=== PATIENT | female | born 1985 | race Caucasian/White ===

== ENCOUNTER → 2018-06-05 | Outpatient (CLI) | payer OTHER ==
[2018-06-05 16:50] LABS: BASO % 0.5 % (0.0-1.0); EOS # 0.1 10^3/uL (0.0-0.50); EOS % 2.3 % (0.0-3.0); HEMATOCRIT 42.8 % (36.0-47.0); HEMOGLOBIN 14.4 g/dl (12.0-15.5); IMMATURE GRANULOCYTE % 0.3 % (0-3.0); LYMPH # 1.7 10^3/uL (1.5-4.5); LYMPH % 29.2 % (24.0-44.0); MEAN CORPUSCULAR HEMOGLOBIN 30.3 pg (27.0-33.0); MEAN CORPUSCULAR HGB CONC 33.6 g/dl (32.0-36.5); MEAN CORPUSCULAR VOLUME 90.1 fl (80.0-96.0); MONO # 0.3 10^3/uL (0.0-0.8); MONO % 5.2 % (0.0-5.0); NEUTROPHILS # 3.6 10^3/uL (1.8-7.7); NEUTROPHILS % 62.5 % (36.0-66.0); PLATELET COUNT, AUTOMATED 218 10^3/uL (150-450); RED BLOOD COUNT 4.75 10^6/uL (4.00-5.40); WHITE BLOOD COUNT 5.8 10^3/uL (4.0-10.0)
[2018-06-05 17:00] LABS: TOTAL 25(OH) VITAMIN D 40.2 NG/ML (30.0-100.0)
[2018-06-05 17:02] LABS: ALBUMIN 4.1 GM/DL (3.2-5.2); ALBUMIN/GLOBULIN RATIO 1.24 (1.00-1.93); ALKALINE PHOSPHATASE 58 U/L (45-117); ALT/SGPT 29 U/L (12-78); ANION GAP 8 MEQ/L (8-16); AST/SGOT 16 U/L (7-37); BILIRUBIN,TOTAL 0.3 MG/DL (0.2-1.0); BLOOD UREA NITROGEN 12 MG/DL (7-18); CALCIUM LEVEL 8.8 MG/DL (8.5-10.1); CARBON DIOXIDE LEVEL 28 MEQ/L (21-32); CHLORIDE LEVEL 106 MEQ/L (98-107); CHOLESTEROL LEVEL 125 MG/DL (<200); CHOLESTEROL RISK RATIO 3.289 (<5); CREATININE FOR GFR 0.81 MG/DL (0.55-1.30); FERRITIN 22 NG/ML (8-252); FREE T4 0.86 NG/DL (0.76-1.46); GLOMERULAR FILTRATION RATE > 60.0 (>60); GLUCOSE, FASTING 73 MG/DL (70-100); HDL CHOLESTEROL 38 MG/DL (>40); IRON (FE) 39 UG/DL (50-170); LDL CHOLESTEROL 54.4 MG/DL (<100); NON-HDL-C 87 MG/DL; PERCENT SATURATION 14.6 % (13.2-45.0); POTASSIUM SERUM 4.1 MEQ/L (3.5-5.1); SODIUM LEVEL 142 MEQ/L (136-145); TOTAL IRON BINDING CAPACITY 268 UG/DL (250-450); TOTAL PROTEIN 7.4 GM/DL (6.4-8.2); TRIGLYCERIDES LEVEL 163 MG/DL (<150)
[2018-06-05 18:50] LABS: ESTIMATED AVERAGE GLUCOSE 85 MG/DL (60-110); HEMOGLOBIN A1c 4.6 %
== END ==
LOC: M LRY 13:26
DX: E55.9 Vitamin D deficiency, unspecified (principal); Z79.899 Other long term (current) drug therapy; Z13.220 Encounter for screening for lipoid disorders; Z13.29 Encounter for screening for other suspected endocrine disorder; Z13.1 Encounter for screening for diabetes mellitus

== ENCOUNTER → 2018-12-20 | Outpatient (CLI) | payer OTHER ==
[2018-12-20 13:35] LABS: BASO % 0.5 % (0.0-1.0); EOS # 0.1 10^3/uL (0.0-0.50); EOS % 1.3 % (0.0-3.0); HEMATOCRIT 39.2 % (36.0-47.0); HEMOGLOBIN 13.7 g/dl (12.0-15.5); LYMPH # 1.7 10^3/uL (1.5-4.5); LYMPH % 21.4 % (24.0-44.0); MEAN CORPUSCULAR HEMOGLOBIN 31.6 pg (27.0-33.0); MEAN CORPUSCULAR HGB CONC 34.9 g/dl (32.0-36.5); MEAN CORPUSCULAR VOLUME 90.3 fl (80.0-96.0); MONO # 0.4 10^3/uL (0.0-0.8); MONO % 5.4 % (0.0-5.0); NEUTROPHILS # 5.7 10^3/uL (1.8-7.7); NEUTROPHILS % 71.1 % (36.0-66.0); PLATELET COUNT, AUTOMATED 227 10^3/uL (150-450); RED BLOOD COUNT 4.34 10^6/uL (4.00-5.40); WHITE BLOOD COUNT 7.9 10^3/uL (4.0-10.0)
[2018-12-20 14:23] LABS: ALBUMIN 3.7 GM/DL (3.2-5.2); ALT/SGPT 28 U/L (12-78); BILIRUBIN,DIRECT 0.2 MG/DL (0.0-0.2); BILIRUBIN,TOTAL 0.7 MG/DL (0.2-1.0); TOTAL PROTEIN 7.2 GM/DL (6.4-8.2)
[2018-12-20 14:44] LABS: RUBELLA IgG QUALITATIVE IMMUNE (IMMUNE)
[2018-12-20 15:12] LABS: HEPATITIS C VIRUS ABY INDEX 0.1 INDEX (<0.8); HIV 1&2 SCREEN CENTAUR NEGATIVE (NEGATIVE)
[2018-12-20 15:28] LABS: CHLAMYDIA DNA AMPLIFICATION NEGATIVE (NEGATIVE); GC DNA AMPLIFICATION NEGATIVE (NEGATIVE)
== END ==
LOC: M SMT 09:47
PROVIDERS: ATTEND Specialist
DX: Z3A.08 8 weeks gestation of pregnancy (principal); Z34.81 Encounter for supervision of other normal pregnancy, first trimester

== ENCOUNTER → 2019-02-27 | Outpatient (CLI) | payer OTHER ==
--- NOTE | 2019-02-28 09:58 | REP ---
Obstetric ultrasound for anatomy: There is a single intrauterine gestation. position is variable. The heart rate is 154 beats per minute. There is motion. The placenta is anterior. There is no previa or abruptio. Placenta is grade 1 maturity. The amniotic fluid volume subjectively is normal. The cervix measures 5.3 cm length. Gestational age by today's ultrasound is 20 weeks 0 days/ IGOR is 07/17/2019. Gestational age by LMP is 20 weeks 0 days/IGOR 07/17/2019. weight is 316 grams/0 pounds, 11 ounces. This is the 42nd percentile for 20 weeks 0 days. The following anatomic structures are identified and are unremarkable: Intracranial lateral ventricles, choroid plexus, cerebellum, cisterna magna, facial profile, diaphragm, left-sided stomach, cord insertion, three-vessel cord, bladder, spine and upper lower extremities. Suboptimally demonstrated because of position are the upper lip, lungs, four-chamber view of the heart, cardiac right and left ventricular outflow tracts and kidneys. A followup study dedicated to these structures might be considered. Otherwise, there are no anomalies. Electronically Signed by Kt Montaño MD 02/28/2019 09:50 A
== END ==
LOC: M RAD 17:06
PROVIDERS: ATTEND Specialist
DX: Z34.82 Encounter for supervision of other normal pregnancy, second trimester (principal)

== ENCOUNTER → 2019-03-12 | Outpatient (CLI) | payer OTHER ==
[2019-03-12 13:21] LABS: ALBUMIN 3.2 GM/DL (3.2-5.2); BILIRUBIN,DIRECT 0.2 MG/DL (0.0-0.2); BILIRUBIN,TOTAL 0.4 MG/DL (0.2-1.0); TOTAL PROTEIN 6.6 GM/DL (6.4-8.2)
== END ==
LOC: M SMT 10:14
PROVIDERS: ATTEND Advanced Practice Midwife
DX: R10.11 Right upper quadrant pain (principal)

== ENCOUNTER → 2019-03-21 | Outpatient (CLI) | payer OTHER ==
--- NOTE | 2019-03-21 19:48 | REP ---
Clinical: Anatomical evaluation. Comparison: 02/27/2019 . Findings: Examination demonstrates a single live intrauterine in transverse (head to maternal left) presentation. motion is identified by technologist. Placenta is noted anterior and grade grade zero without evidence for placenta previa or abruption. Amniotic fluid volume is normal. Cervix measures 4.1 cm in length and appears closed. No evidence for nuchal cord. Gestational age by LMP 23 weeks 1 day with IGOR 07/17/2019 . Gestational age by current measurements 23 weeks 0 days with IGOR 03/14/2019 . FHR equals 162 beats per minute. Estimated weight 594 grams ( 55th percentile). Anatomical assessment demonstrates normal structures including cranium, choroid plexus, cavum, cerebellum/posterior fossa, diaphragm, stomach, cord insertion/three-vessel cord, kidneys/bladder, spine, and extremities. Impression: 1. Single live intrauterine in transverse lie demonstrating appropriate interval growth. 2. Limited evaluation of the facial features, lungs, and heart/ventricular outflow tracts again noted. Remainder of the anatomical assessment is complete and normal. Electronically Signed by Barrera Dominguez MD 03/21/2019 07:39 P
== END ==
LOC: M RAD 17:38
PROVIDERS: ATTEND Advanced Practice Midwife
DX: Z34.82 Encounter for supervision of other normal pregnancy, second trimester (principal); Z3A.23 23 weeks gestation of pregnancy

== ENCOUNTER → 2019-03-23 | Outpatient (CLI) | payer OTHER ==
--- NOTE | 2019-03-23 10:19 | REP ---
RIGHT UPPER QUADRANT ULTRASOUND: Real-time sonographic evaluation of the right upper quadrant performed. The patient had a prior cholecystectomy. There is no intrahepatic or extrahepatic biliary dilatation, common bile duct measuring 6 mm. The liver and pancreas demonstrate no mass. There may be some minimal fatty infiltration of the liver sonographically. The right kidney demonstrates no hydronephrosis or nephrolithiasis with normal size 11.3 cm in length. No free fluid is seen. The patient is and the heart rate is 146 beats per minute. IMPRESSION: Status post cholecystectomy without biliary dilatation. Possible minimal fatty infiltration of the liver. Electronically Signed by Kt Pettit MD 03/28/2019 11:35 A
== END ==
LOC: M RAD 09:32
PROVIDERS: ATTEND Advanced Practice Midwife
DX: R10.11 Right upper quadrant pain (principal); Z90.49 Acquired absence of other specified parts of digestive tract

== ENCOUNTER → 2019-04-06 | Outpatient (CLI) | payer OTHER ==
[2019-04-06 17:16] LABS: BASO % 0.3 % (0.0-1.0); EOS # 0.1 10^3/uL (0.0-0.50); EOS % 1.5 % (0.0-3.0); HEMATOCRIT 37.5 % (36.0-47.0); HEMOGLOBIN 12.4 g/dl (12.0-15.5); LYMPH # 1.4 10^3/uL (1.5-4.5); LYMPH % 16.5 % (24.0-44.0); MEAN CORPUSCULAR HEMOGLOBIN 32.1 pg (27.0-33.0); MEAN CORPUSCULAR HGB CONC 33.1 g/dl (32.0-36.5); MEAN CORPUSCULAR VOLUME 97.2 fl (80.0-96.0); MONO # 0.4 10^3/uL (0.0-0.8); MONO % 4.7 % (0.0-5.0); NEUTROPHILS # 6.6 10^3/uL (1.8-7.7); NEUTROPHILS % 76.3 % (36.0-66.0); PLATELET COUNT, AUTOMATED 186 10^3/uL (150-450); RED BLOOD COUNT 3.86 10^6/uL (4.00-5.40); WHITE BLOOD COUNT 8.7 10^3/uL (4.0-10.0)
== END ==
LOC: M LRY 09:24
PROVIDERS: ATTEND Advanced Practice Midwife
DX: Z34.82 Encounter for supervision of other normal pregnancy, second trimester (principal); Z3A.00 Weeks of gestation of pregnancy not specified

== ENCOUNTER → 2019-06-20 | Outpatient (REF) | payer OTHER | LOC: M LAB REF 13:22 | PROVIDERS: ATTEND Obstetrics & Gynecology | DX: O09.523 Supervision of elderly multigravida, third trimester (principal) ==

== ENCOUNTER → 2019-06-20 | Outpatient (CLI) | payer OTHER ==
[~2019-06-20] MED LIST: PRENTAB9 PO
== END ==
LOC: M SMT 09:28
PROVIDERS: ATTEND Obstetrics & Gynecology
DX: O09.523 Supervision of elderly multigravida, third trimester (principal)

== ENCOUNTER 2019-07-18 12:15 | Inpatient (IN) | payer OTHER ==
[~2019-07-18] VITALS: Ht 166.4 cm; Wt 99.4 kg
[2019-07-18] VITALS (9 sets, daily range): BP systolic 118–162; BP diastolic 58–93
[2019-07-18] MEDS ORDERED: PRENTAB9 PO (13:33)
[2019-07-18] MEDS: miSOPROStol 50 MCG 1/2 TAB (S0191) PO SCH ×3 (14:31→22:28)
[2019-07-18 14:48] LABS: HEMATOCRIT 38.3 % (36.0-47.0); HEMOGLOBIN 13.3 g/dl (12.0-15.5); MEAN CORPUSCULAR HEMOGLOBIN 31.5 pg (27.0-33.0); MEAN CORPUSCULAR HGB CONC 34.7 g/dl (32.0-36.5); MEAN CORPUSCULAR VOLUME 90.8 fl (80.0-96.0); PLATELET COUNT, AUTOMATED 195 10^3/uL (150-450); RED BLOOD COUNT 4.22 10^6/uL (4.00-5.40); WHITE BLOOD COUNT 9.6 10^3/uL (4.0-10.0)
--- NOTE | 2019-07-18 16:01 | HPE ---
DATE OF ADMISSION: Sabi is a 34-year-old 3, para 2-0-0-2 at 40-1/7 weeks gestation, estimated date of delivery (EDC) of 07/17/2019 based on last period and by first trimester ultrasound. She presents to labor and delivery today for induction of labor due to term . Her course was initiated at [facility] in the first trimester. course complicated by advanced maternal age, enlarged and fatty liver. OBSTETRICAL HISTORY December 2013 40 weeks gestation, 7 pounds 9 ounces male vaginal delivery. September 2015 40 weeks gestation, 8 pounds 5 ounces male vaginal delivery, vacuum assist due to heart rate deceleration. OBSTETRIC LABS O+, antibody screen negative, rubella immune, VDRL nonreactive. Urine culture: No growth. Hep B surface antigen negative, HIV negative. Hep C antibody nonreactive. Gonorrhea and chlamydia negative. She declined genetic serum screening labs. Her gestational diabetic screening is normal at 108 and her GBS is negative. PAST MEDICAL HISTORY Uncomplicated. SURGERIES Breast reduction, Lasix, cholecystectomy. FAMILY HISTORY Hypertension, heart disease, hypercholesterolemia, autoimmune, PMR, Crohn disease, [place]'s rheumatoid arthritis, asthma, autism, heart valve replacement. SOCIAL HISTORY The patient is . Her is at bedside and supportive. She is a nonsmoker. Denies alcohol and drug use. No history of any sexually transmitted infections and denies history of abuse physical, sexual and emotional. ALLERGIES: PERCOCET. CURRENT MEDICATIONS vitamins OBJECTIVE Temperature 98, pulse 78, respirations 16, BP is 125/82. She is alert and oriented times three, smiling and talkative, no apparent distress. heart rate is 140, moderate variability, positive excels, no decelerations. No pattern of regular contractions. Abdomen is gravid, cephalic presentation. Estimated weight 8 pounds. Sterile vaginal exam 2 cm dilated, 50% effaced, minus three station. ASSESSMENT Uterine at 40-1/7 weeks. heart rate is category one. Term . PLAN Admit the patient to labor and delivery. Routine labs, out of bed ad amor. Regular diet at this time. Start misoprostol 50 mcg by mouth every 4 hours for cervical ripening. I did review risks, benefits and alternatives. The patient and her have had all their questions answered. She has been verbally consented for emergency surgery and blood products if necessary. I anticipate cervical ripening, labor and a spontaneous vaginal delivery. She does desire an epidural when she is in active labor.
[2019-07-18] MEDS ORDERED: LR 1,000 ML IV SCH (22:30)
[2019-07-19] VITALS (33 sets, daily range): BP systolic 97–215; BP diastolic 51–120
[2019-07-19] MEDS ORDERED: OXYTOCIN 30 UNITS IN 0.9% NaCl 500ML IV BAG (J2590) As Ordered ONE (01:48)
[2019-07-19] MEDS ORDERED: FENTANYL 2MCG/ML ROPIVACAINE 0.2% IN 0.9% NACL 100ML IVBAG As Ordered ONE (05:14)
[2019-07-19] MEDS ORDERED: EPIDURAL/PCA KEYS XX PRN (05:45)
[2019-07-19] MEDS ORDERED: diphenhydrAMINE INJ 50MG/ML VIAL (J1200) IV PRN (05:45)
[2019-07-19] MEDS ORDERED: NALOXONE INJ 0.4 MG/1 ML VIAL (J2310) IV PRN (05:45)
[2019-07-19] MEDS ORDERED: EPIDURAL COMMENT XX SCH (05:45)
[2019-07-19] MEDS ORDERED: FENTANYL/ROPIVACAINE/NACL BAG 100 ML EPIDURAL SCH (05:45)
[2019-07-19] MEDS ORDERED: ePHEDrine SULFATE 25 MG/5 ML(5MG/ML) SYRINGE IV PRN (05:45)
[2019-07-19] MEDS ORDERED: REFRIGERATOR IV KEYS XX PRN (05:45)
[2019-07-19] MEDS ORDERED: ONDANSETRON 4MG/2ML VIAL (J2405) IV PRN (05:45)
--- NOTE | 2019-07-19 09:13 | IPNPDOC ---
Text Note Date of Service The patient was seen on 07/19/19. NOTE S: Patient comfortable s/p epidural O: vitals stable SVE: 4-5/80/-2 FHR: 140 bpm, mod variability, accels no decels, cat 1 tracing TOCO: CTX q2H A/P: 34 yo at 40.1 EGA IOL for term -in active labor (pit was at 4 when she was ruptured) -AROM at 0835 clear fluid -anticipate VS,Fishbone, I+O VS, Fishbone, I+O Laboratory Tests 07/18/19 14:23 Red Blood Count 4.22, Mean Corpuscular Volume 90.8, Mean Corpuscular Hemoglobin 31.5, Mean Corpuscular Hemoglobin Concent 34.7, Red Cell Distribution Width 13.8 Vital Signs Date Time Temp Pulse Resp B/P (MAP) Pulse Ox O2 Delivery O2 Flow Rate FiO2 07/19/19 08:00 59 16 107/58 (74) 07/19/19 07:29 97.8 I&O- Last 24 Hours up to 6 AM 07/19/19 06:00 Intake Total 2000 ml Balance 2000 ml GME ATTESTATION GME ATTESTATION My faculty preceptor for this patient encounter was physically present during the encounter and was fully available. All aspects of the patient interview, examination, medical decision making process, and medical care plan development were reviewed and approved by the faculty preceptor. The faculty preceptor is aware and concurs with the plan as stated in the body of this note and will attest to such by his/her cosignature. VIKKI BAILEY DO Jul 19, 2019 09:13
[2019-07-19] MEDS ORDERED: OXYTOCIN DRIP 30 UNITS in APPROPRIATE DILUENT 1 EA IV SCH (10:55)
[2019-07-19] MEDS ORDERED: RHOGAM 300 MCG (1500 IU) INJ (J2790) IM SCH (11:00)
[2019-07-19] MEDS ORDERED: METHYLERGONOVINE MALEATE 0.2 MG TAB PO PRN (11:00)
[2019-07-19] MEDS ORDERED: IBUPROFEN 800 MG TAB PO PRN (11:00)
[2019-07-19] MEDS ORDERED: DIBUCAINE 1% OINTMENT 30GM TOP PRN (11:00)
[2019-07-19] MEDS ORDERED: MEASLES,MUMPS,RUBELLA VACCINE INJ (MMR-II) (90707) SC SCH (11:00)
[2019-07-19] MEDS ORDERED: ACETAMINOPHEN TAB 650MG DOSE (2X325MG) PO PRN (11:00)
[2019-07-19] MEDS ORDERED: ACETAMINOPHEN 500 MG TAB PO PRN (11:00)
[2019-07-19] MEDS ORDERED: DOCUSATE SODIUM 100 MG CAP PO PRN (11:00)
--- NOTE | 2019-07-19 11:13 | DN ---
DATE OF DELIVERY: 07/19/2019 PREDELIVERY DIAGNOSIS: 40 weeks 1 day estimated gestational age. POSTDELIVERY DIAGNOSIS: Delivered. PROCEDURE: Spontaneous vaginal delivery. PROVIDER: Марина Kent DO, PGY-3 HAMMER HEATER: July Guajardo, Certified Nurse Inventory Transcriber ANESTHESIA: Epidural. ESTIMATED BLOOD LOSS: 500 mL. FINDINGS: This is a male infant weighing 3590 grams or 7 pounds 15 ounces, scores 9 and 9. DELIVERY SUMMARY: After a short second stage, the patient spontaneously delivered a 7 pound 15 ounces male infant weighing 3570 grams under epidural anesthesia at 0958 hours. The delivered straight occipitoanterior (OA) and restituted left occipitotransverse (LOT). There was no nuchal. The shoulders delivered spontaneously followed by the corpus. The infant cried spontaneously and was handed to the mother. scores were 9 and 9. The cord was doubly clamped and cut by the father of the baby under my direction. The placenta was delivered spontaneously at 1004 hours via Schultze mechanism and appeared to be intact. Three-vessel cord was noted. The patient received intravenous (IV) Pitocin immediately after delivery of the placenta. Uterine hemostasis acheived with uterine fundal massage. EBL: 500cc. The patient had a small first-degree perineal tear and a left labial abrasion. Both were repaired with 3-0 Rapide. Vaginal packing was placed inside the vagina due to continued oozing of left labial abrasion. Sponge, needle, and instrument counts were correct and verified. The parents have named their baby Sundar. The mother plans to breastfeed. MTDD
--- NOTE | 2019-07-19 12:35 | DN ---
DATE: 07/19/2019 Sabi is a 34-year-old 3, para 3-0-0-3 now, she was admitted to labor and delivery for induction of labor. Misoprostol and IV Pitocin was used and labor did ensue. She utilized an epidural for her labor coping. She reached complete dilation at 0938. She pushed to a normal spontaneous vaginal delivery of a live male in occiput anterior (OA) position with restitution to left occiput transverse (LOT) position at 0958. There was no nuchal cord. Shoulders delivered spontaneously and the corpus immediately followed. [place] male was placed on maternal abdomen crying and active for stimulation and bonding. A spontaneous expulsion of an intact placenta with three-vessel cord by West mechanism was at 1004. Uterine hemostasis achieved with IV Pitocin rapid infusion and uterine fundal massage. Estimated blood loss was 500 mL. The vagina and perineum inspected and noted to have a first-degree perineal laceration as well as a left labial laceration. The lacerations were repaired with #3-0 Rapide in the usual fashion. There was a vaginal packing placed due to the left labial laceration that continued oozing. male weighed 7 pounds 15 ounces, 3590 grams, 9 and 9. Mom is going to breastfeed as well as bottle feed her son and the family have named him Sundar. At the close of delivery lap counts, needle counts and instrument counts were correct and verified. Delivery was performed with Dr. Kavitha Kent under my direct supervision.
[2019-07-19] MEDS ORDERED: SLF 3 ML SYR IV PRN (13:00)
[2019-07-19] MEDS: SLF 3 ML SYR IV SCH ×2 (14:23→21:59)
[2019-07-20] MEDS: SLF 3 ML SYR IV SCH ×2 (05:34→14:00)
[2019-07-20 06:00] VITALS: BP 111/69
--- NOTE | 2019-07-20 06:21 | IPNPDOC ---
Text Note Date of Service The patient was seen on 07/20/19. NOTE Day 1 s/p ; uncomplicated; vaginal packing was placed secondary to left labial abrasion S: pain well controlled, lochia and bleeding decreasing, voiding spontaneously, ambulating without assistance, tolerating regular diet. Formula feeding O: vitals stable Heart: RRR, no murmurs Lungs: CTA bilaterally Abd: fundus firm at U-2 Ext: no edema, nontender, negative Garima's bilaterally Perineum/Vagina: packing removed, perineal laceration without bleeding or discharge, left labial abrasion without bleeding or discharge A/P: 34 yo G3 now P3. day 1 s/p Hemodynamically stable, afebrile, good pain control. Recovering well. -Routine care and advancement. -Anticipate discharge tomorrow VS,Fishbone, I+O VS, Fishbone, I+O Vital Signs Date Time Temp Pulse Resp B/P (MAP) Pulse Ox O2 Delivery O2 Flow Rate FiO2 07/20/19 06:00 97.7 63 16 111/69 (83) 98 I&O- Last 24 Hours up to 6 AM 07/20/19 06:00 Intake Total 1300 ml Output Total 1425 ml Balance -125 ml GME ATTESTATION GME ATTESTATION My faculty preceptor for this patient encounter was physically present during the encounter and was fully available. All aspects of the patient interview, examination, medical decision making process, and medical care plan development were reviewed and approved by the faculty preceptor. The faculty preceptor is aware and concurs with the plan as stated in the body of this note and will attest to such by his/her cosignature. VIKKI BAILEY DO Jul 20, 2019 06:21
[2019-07-20] MEDS: IBUPROFEN 600 MG TAB PO PRN ×2 (08:01→15:47)
[2019-07-20] MEDS ORDERED: PRENATAL VITAMINS CHEWABLE TABLET PO SCH (09:00)
== END 2019-07-20 19:00 | disposition home or self-care (01) | DRG 807 ==
LOC: M LDI 12:15 → M OBS 07-19 14:00
PROVIDERS: ADMIT Advanced Practice Midwife; ATTEND Advanced Practice Midwife
PROC: 3E0P7GC Introduction of Other Therapeutic Substance into Female Reproductive, Via Natural or Artificial Opening (ICD-10-PCS; 2019-07-18)
PROC: 10E0XZZ Delivery of Products of Conception, External Approach (ICD-10-PCS; principal; 2019-07-19)
PROC: 10907ZC Drainage of Amniotic Fluid, Therapeutic from Products of Conception, Via Natural or Artificial Opening (ICD-10-PCS; 2019-07-19)
PROC: 0HQ9XZZ Repair Perineum Skin, External Approach (ICD-10-PCS; 2019-07-19)
DX: O48.0 Post-term pregnancy (principal); Z37.0 Single live birth; Z3A.40 40 weeks gestation of pregnancy; O70.0 First degree perineal laceration during delivery